=== PATIENT | female | born 1955 | race Caucasian/White ===

== ENCOUNTER 2024-09-15 10:02 | Outpatient (OUT) | payer MEDICARE, SELFPAY ==
--- NOTE | 2024-09-15 10:30 | XR_ITS ---
The [address] [address] Patient Name: DOMINGA MEDINA MRN: [id number] date: 1955 Sex: F Assigned Patient Location: [facility] Current Patient Location: Accession/Order Number: [id number] Exam Date: 09/15/2024 10:23 Report Date: 09/16/2024 13:07 At the request of: LOUIS SIMON Procedure: XR sinus min 3V EXAMINATION: XR sinus min 3V HISTORY: Chronic Sinusitis COMPARISON: No relevant comparison available. FINDINGS: MAXILLARY: Suspect mild mucosal thickening within the maxillary sinuses. ETHMOID: No mucosal thickening or fluid level. FRONTAL: No mucosal thickening or fluid level. SPHENOID: No mucosal thickening or fluid level. OTHER: Negative. XR/XR sinus min 3V IMPRESSION: 1. Suspect mild chronic sinusitis of the maxillary sinuses. Electronically authenticated by: LYLY MARAVILLA Date: 09/16/2024 13:07
== END 2024-09-15 10:03 | disposition home or self-care (01) ==
PROVIDERS: Visit Provider Otolaryngology
DX: J32.9 Chronic sinusitis, unspecified (principal)
CPT/HCPCS: 70220